=== PATIENT | male | born 1945 | race Caucasian/White ===

== ENCOUNTER → 2019-01-07 13:47 | Outpatient (CLI) | payer MEDICARE, MEDICAID, SELFPAY ==
--- NOTE | 2019-01-07 13:56 | XR_ITS ---
EXAM: XR lumbar spine min 4V HISTORY: Low back pain, left hip pain ITS.REASON: LT HIP PAIN ORDERING PHYSICIAN: Brady Pond MD PATIENT AGE: 73 years COMPARISON: 02/04/2016 FINDINGS: There are postsurgical changes with prior posterior fusion at L3-L4 and L4-L5 with posterior interpedicular screws. Degenerative disc disease is present from L1 to S1 and is most severe at the L2-L3 and L5-S1 levels. The degenerative disc disease has progressed compared to the previous exam. Endplate hypertrophic changes are also present from L2 to S1. No acute fracture or dislocation. No lytic or blastic change. There is mild lumbar scoliosis convex right. There is generalized vascular calcification. IMPRESSION: Postsurgical change with severe degenerative disc disease which has progressed since 02/04/2016
== END ==
PROVIDERS: PCP Family Medicine; Visit Provider Family Medicine
DX: M25.552 Pain in left hip (principal)
CPT/HCPCS: 72110

== ENCOUNTER → 2019-02-21 13:34 | Outpatient (CLI) | payer MEDICARE, MEDICAID, SELFPAY ==
--- NOTE | 2019-02-21 13:39 | CT_ITS ---
CT lumbar spine wo con INDICATION: ITS.REASON: DORSALGIA, CHRONIC PAIN, LT HIP PAIN, NUMBNESS ORDERING PHYSICIAN: Brady Pond MD PATIENT AGE: 73 years COMPARISON: 2016 TECHNIQUE: Axial images obtained with sagittal and coronal reformats. All CT scans at the facility use one or more dose reduction, viz: automated exposure control, ma/kV adjustment per patient size (including targeted exams where dose is matched to indication, i.e. head), or iterative reconstruction technique. FINDINGS: There is multilevel degenerative disc disease as described below. There is normal alignment. No acute fracture or dislocation is evident. Prominent osteophytes are present along the lower thoracic spine. T10-T11: Degenerative disc disease with prominent endplate osteophytes. T11-T12: Degenerative disc disease with mild bulging disc with canal narrowing and mild bilateral foraminal narrowing. T12-L1: Mild concentric bulging disc with mild degenerative disc disease. Broad-based right paracentral foraminal and lateral disc protrusion severe narrowing of the right foramen at that level. L1-L2: Degenerative disc disease. There is moderate left lateral recess and foraminal narrowing and hypertrophy. L2-L3: Prominent endplate osteophytes with posterior osteophyte also noted with resultant canal stenosis and bilateral lateral recess and foraminal narrowing greater on the left. L3-L4: Postsurgical changes with interpedicular screws. Prior laminectomy. There is a small left paracentral and lateral disc osteophyte complex causing left-sided foraminal narrowing and left lateral recess narrowing. L4-5: Postsurgical changes with interpedicular screws and endplate and facet hypertrophy with bilateral foraminal narrowing. L5-S1: Bulging disc osteophyte complex with moderate to severe bilateral lateral recess and foraminal narrowing. IMPRESSION: 1. Abnormal CT of the lumbar spine with postsurgical changes along with multilevel lumbar spondylosis with degenerative disc disease, osteophyte formation and bulging discs result in foraminal and lateral recess narrowing and narrowing of the canal. Please see above for detailed description at each level. 2. Postsurgical changes with fusion posteriorly from L3 to L5. Please see above for detailed description
== END ==
PROVIDERS: PCP Family Medicine; Visit Provider Family Medicine
DX: M54.5 Low back pain (principal); M25.552 Pain in left hip; R20.0 Anesthesia of skin; G89.29 Other chronic pain
CPT/HCPCS: 72131

== ENCOUNTER → 2021-11-01 14:55 | Outpatient (CLI) | payer MEDICARE, MEDICAID, SELFPAY ==
--- NOTE | 2021-11-01 15:05 | XR_ITS ---
FINAL REPORT CLINICAL HISTORY: PNEUMONIA,COUGH; pt returning to office for results FINDINGS: Two views of the chest were obtained. There is been median sternotomy. A left subclavian pacemaker is present. The heart size and pulmonary vascularity are within normal limits. The mediastinum is normal. There is mild bibasilar atelectasis or scarring. There is a small right pleural effusion. There is no pneumothorax. There are moderate degenerative changes of the thoracic spine and the shoulders. IMPRESSION: Mild bibasilar atelectasis or scarring. Small right pleural effusion. Reviewed, Interpreted and Dictated by Stephen Mcdowell III, MD Transcribed by Carin Martinez Authenticated by Stephen Mcdowell III, MD on 11/01/2021 04:11:47 PM [facility]
== END ==
PROVIDERS: PCP Family Medicine; Visit Provider Family Medicine
DX: J18.9 Pneumonia, unspecified organism (principal); R05.9 Cough, unspecified
CPT/HCPCS: 71046